=== PATIENT | male | born 1985 | race African-American/Black ===

== ENCOUNTER 2021-03-31 19:30 | Emergency (ER) | payer OTHER ==
[2021-03-31 19:45] VITALS: BP 110/69; PULSE 61; TEMP 97.8; BMI 22.3
[2021-03-31] MEDS ORDERED: KETOROLAC TROMETHAMINE 30 MG/1 ML VIAL IM ONE (20:26)
[2021-03-31] MEDS ORDERED: KETOROLAC TROMETHAMINE 30 MG/1 ML VIAL ONE (20:36)
== END 2021-03-31 20:59 | disposition home or self-care (01) ==
LOC: JERFT 19:30
PROC: 3E0233Z Introduction of Anti-inflammatory into Muscle, Percutaneous Approach (ICD-10-PCS; principal; 2021-03-31)
DX: M54.2 Cervicalgia (principal)
CPT/HCPCS: 99284-25

== ENCOUNTER 2021-05-05 17:57 | Emergency (ER) | payer BC, OTHER ==
[2021-05-05 19:14] VITALS: BP 109/70; PULSE 69; TEMP 98; BMI 22.3
== END 2021-05-05 20:35 | disposition home or self-care (01) ==
LOC: JERFT 17:57
DX: R51.9 Headache, unspecified (principal); S00.83XA Contusion of other part of head, initial encounter; S13.4XXA Sprain of ligaments of cervical spine, initial encounter; W22.8XXA Striking against or struck by other objects, initial encounter; V89.2XXA Person injured in unspecified motor-vehicle accident, traffic, initial encounter
CPT/HCPCS: 70150-TC-FY; 72050-TC-FY; 99284-25